=== PATIENT | male | born 1960 | race Caucasian/White ===

== ENCOUNTER 2025-07-02 08:35 | Emergency (ER) | payer OTHER ==
[~2025-07-02] VITALS: Ht 180.3 cm; Wt 84.7 kg
[2025-07-02 08:48] VITALS: TEMP 98.4
--- NOTE | 2025-07-02 11:35 | Physician Documentation ---
History of Present Illness Chief Complaint: Abdominal Pain Stated Complaint: ABD PAIN AND SWELLING Time Seen by MD: 10:40 Mode of Arrival: POV, Ambulatory HPI 64-year-old male presents to the ED with a complaint of abnormal bed-bound since June 23 which is approximately eight days. The since then he has developed increased watery diarrhea. Reports abdominal pain midepigastric. Also reports a subclinical fever. Denies any vomiting, denies any chest Pain He has a history of Hodgkin's lymphoma. Day of Onset: Jul 02, 2025 Medication Reconciliation Allergies: Coded Allergies: No Known Allergies (Unverified , 07/02/25) Scheduled Omeprazole (Prilosec), 1 CAP PO DAILY Review of Systems All Other Systems at this time: Reviewed and Negative ROS As stated above in the HPI, otherwise all systems are reviewed and negative. Physical Exam Vital Signs: Temperature: 98.4, Source: Oral, Heart Rate: 59, Respiratory Rate: 18, BP: 157/87, Pulse Oximetry: 92, Weight: 186.400 Oxygen Flow Rate: 0 Physical Exam General: Alert, no apparent distress. Respiratory: Lungs clear, no respiratory distress. Cardiovascular: Regular rate and rhythm, no murmurs. Gastrointestinal: Soft tender bilateral midepigastric via palpation Neurologic: Oriented x4. Psychiatric: Normal mood and affect. Skin: Normal color, warm and dry. No edema, no ecchymosis. Progress Results/Orders Results/Orders Vital Signs 07/02/25 07/02/25 07/02/25 08:48 11:05 11:27 Temp 98.4 Pulse 73 59 Resp 12 16 18 B/P (MAP) 177/89 157/87 (110) Pulse Ox 96 92 O2 Flow Rate 0 0 Medical Decision Making Findings Patient's laboratory values were overall unremarkable. CT was also unremarkable in regards to identifying the cause of patient's abdominal pain. This leads me to believe that pain was he he is experiencing this is essentially nonemergent as we have ruled out acute pathology including small-bowel obstructionand and multiple infectious pathologies as his laboratory values are unremarkable. I am going to start the patient on omeprazole and have him follow up in the outpatient setting Differential Dx:Considerations: Include: AAA, Angina/[place], Aortic dissection, Appendicitis, Bowel obstruction, Cholangitis, Cholelithasis, Constipation, Diverticular disease, Esophageal rupture, Esophagitis, Gastritis/PUD, Gastr oenteritis, GI hemorrhage, Hernia, Hepatitis, Inflammatory BD, Ischemic bowel, Pancreatitis, Porphyria, Testicular torsion, Trauma, intraabdominal, Urinary obstruction, Urinary tract infection, Urolithiasis, Other Departure Disposition: HOME / SELF CARE / HOMELESS Impression: Primary Impression: Abdominal pain Discharge Instructions: Abdominal Pain (Nonspecific) Additional Instructions: CTresults showed no signs of acute pathology. New laboratory values were reassuring as well showing no signs of any infectious processes. If you have persistent pain a recommend following up with the primary care for further evaluation and potential and gastroenterology referral Addition your CT, showed no signs of bowel obstruction or severe constipation Referrals: NO PRIMARY CARE PROVIDER (PCP) Prescriptions Omeprazole (Prilosec) 40 Mg Capsule 1 CAP PO DAILY for 30 Days, #30 CAP Prov: RHETT EMMANUEL NP 07/02/25 Signature Scribe Signature: [email or web address] Attestation: Scribed for Rhett Emmanuel Furnace Keeper by Rhett Joshi NP . 07/02/25 13:31 RHETT EMMANUEL NP Jul 02, 2025 11:34
[2025-07-02 11:39] LABS: MEAN PLATELET VOLUME 8.5 FL (7.4-10.4); RED CELL DISTRIBUTION WIDTH 13.4 % (11.5-14.5)
[2025-07-02 11:55] LABS: CREATININE 0.89 MG/DL (0.60-1.10); TOTAL CARBON DIOXIDE 30.6 MMOL/L (24-32); eCRCL 87 ML/MIN; eGFR 86 ML/MIN
--- NOTE | 2025-07-02 13:25 | RADIOLOGY REPORT ---
CT CT ABDOMEN PELVIS INDICATION: abd pain EXAM DATE: 07/02/2025 12:39 PM COMPARISON: None RADIATION DOSE: CTDIvol: 166 mGy, DLP: 937 mGy*cm PROCEDURE: Helical CT images were obtained of the abdomen and pelvis without IV contrast Sagittal and coronal reconstructions are provided. ORAL CONTRAST: None. ADDITIONAL IMAGES / REFORMATS: None All C T scans at this medical facility are performed using dose modulation techniques as appropriate to a p erformed exam including the following: Automated exposure control was utilized; adjustment of the MA and/or KV according to patient size; and use of iterative reconstruction technique. FINDINGS: LUNG BASE: Bibasilar atelectasis. LIVER: Normal. GALLBLADDER AND BILIARY TREE: No calcified gallstones. Normal caliber wall. No intra- or extrahepatic biliary ductal dilation. PANCREAS: Normal. SPLEEN: Normal. BOWEL: Normal. Normal appendix. ADRENALS: Normal. KIDNEYS AND URETER: 1.1 cm right lower pole renal lesion is incompletely characterized. BLADDER: Large posterior bladder diverticulum. REPRODUCTIVE ORGANS: Normal. LYMPH NODES:No lymphadenopathy. PERITONEUM: No ascites or free air. No other fluid collection. VESSELS: Scattered atherosclerotic calcifications are noted. RETROPERITONEUM: Normal. ABDOMINAL WALL: Normal. BONES: Scattered osseous degenerative changes are noted. IMPRESSION: No acute intraabdominal abnormality. 1.1 cm right lower pole renal lesion is incompletely characterized.
[2025-07-02] MEDS ORDERED: OMEP40CA21 PO (13:32)
[2025-07-02] MEDS: normal saline 1000ML IV soln IVB ONE (13:38)
[2025-07-02 14:08] VITALS: BP 151/86; PULSE 64; RESP 16; O2SAT 98
== END 2025-07-02 14:10 | disposition home or self-care (01) ==
LOC: ER 08:36
DX: R10.13 Epigastric pain (principal); R50.9 Fever, unspecified
CPT/HCPCS: 36415; 74176; 80053; 83690; 85025; 99284; J7030